=== PATIENT | female | born 1950 | race Caucasian/White ===

== ENCOUNTER 2017-05-18 20:15 | Inpatient (IN) | payer OTHER ==
[~2017-05-18] VITALS: Ht 165.1 cm; Wt 109.5 kg
[~2017-05-18 20:15] MED LIST: ATOR40TA78 PO; FENO145T13 PO; METO-95 PO; METO-99 PO; RAMI2.5C PO; VERA80TA2 PO; WARF5TAB PO
[2017-05-18] MEDS ORDERED: ONDANSETRON 2MG/ML, 2ML IVPush ONE (20:30)
[2017-05-18] MEDS ORDERED: SODIUM CHLORIDE FLUSH 10ML SYR IVF ONE (20:30)
[2017-05-18] MEDS ORDERED: MORPHINE SULFATE 4 MG/ML, 1ML IVPush PRN (20:30)
[2017-05-18 20:43] LABS: HEMATOCRIT 45.9 % (34.6-47.8); HEMOGLOBIN 14.5 g/dL (11.7-16.4); WHITE BLOOD COUNT 11.7 x10^3/uL (3.4-10)
[2017-05-18 20:54] LABS: BLOOD UREA NITROGEN 14 mg/dL (7-18)
[2017-05-18] MEDS ORDERED: FAMOTIDINE 20 MG/2 ML IVPush ONE (21:00)
[2017-05-18] MEDS ORDERED: MAALOX/HYOSCYAMINE/LIDOCAINE 45 ML BTL PO ONE (21:00)
[2017-05-18 21:02] LABS: IS PT STATUS REG ER OR PRE ER? YES
[2017-05-18] MEDS ORDERED: ONDANSETRON 2MG/ML, 2ML ONE (21:07)
[2017-05-18] MEDS ORDERED: MAALOX/HYOSCYAMINE/LIDOCAINE 45 ML BTL ONE (21:07)
[2017-05-18] MEDS ORDERED: MORPHINE SULFATE 4 MG/ML, 1ML ONE (21:07)
[2017-05-18] MEDS ORDERED: FAMOTIDINE 20 MG/2 ML ONE (21:08)
[2017-05-18] MEDS ORDERED: SODIUM CHLORIDE 0.9% 1,000 ML IV SCH (23:04)
[2017-05-18] MEDS ORDERED: FURO20TA3 PO (23:28)
[2017-05-18] MEDS ORDERED: METF500T4 PO (23:28)
[2017-05-18] MEDS ORDERED: POTA25TA4 PO (23:29)
[2017-05-18] MEDS ORDERED: SIMV10TA3 PO (23:29)
[2017-05-18] MEDS ORDERED: ACETAMINOPHEN 325 MG TABLET PO PRN (23:30)
[2017-05-18] MEDS ORDERED: morphine SULFATE 10 MG/ML, 1ML IVPush PRN (23:30)
[2017-05-18] MEDS ORDERED: VERAPAMIL 80MG TABLET PO SCH (23:30)
[2017-05-18] MEDS ORDERED: DEXTROSE 4 GM TAB.CHEW PO PRN (23:30)
[2017-05-18] MEDS ORDERED: DEXTROSE 50%, 50ML SYRINGE IVPush PRN (23:30)
[2017-05-18] MEDS ORDERED: ONDANSETRON 2MG/ML, 2ML IVPush PRN (23:30)
[2017-05-18] MEDS ORDERED: hydrALAzine 20 MG/ML, 1ML IVPush PRN (23:30)
[2017-05-18] MEDS ORDERED: GLUCAGON 1 MG IM PRN (23:30)
[2017-05-18 23:45] LABS: IS PT STATUS REG ER OR PRE ER? YES
[2017-05-19 00:06] VITALS: BP 119/86
[2017-05-19] MEDS ORDERED: KETOROLAC 30 MG/1 ML IVPush ONE (01:00)
[2017-05-19] MEDS ORDERED: ALBUTEROL/IPRATROPIUM 2.5MG/0.5MG, 3 ML NPPB PRN (02:00)
[2017-05-19 06:06] LABS: IS PT STATUS REG ER OR PRE ER? NO
[2017-05-19 07:35] VITALS: BP 105/71
[2017-05-19] MEDS ORDERED: REGADENOSON 0.4 MG/5 ML SYRINGE ONE (08:21)
[2017-05-19] MEDS ORDERED: RAMIPRIL 2.5 MG CAPSULE PO SCH (09:00)
[2017-05-19] MEDS ORDERED: SODIUM CHLORIDE FLUSH 10ML SYR IVF SCH (09:00)
[2017-05-19] MEDS ORDERED: METOPROLOL TARTRATE 100 MG TABLET PO SCH (09:00)
[2017-05-19] MEDS ORDERED: K-LYTE 25 MEQ TABLET.EFF PO SCH (09:00)
[2017-05-19] MEDS ORDERED: FUROSEMIDE 20 MG TABLET PO SCH (09:00)
[2017-05-19] MEDS ORDERED: metFORMIN 500 MG TABLET PO SCH (09:00)
[2017-05-19] MEDS ORDERED: FENOFIBRATE 145 MG TABLET PO SCH (09:00)
[2017-05-19] MEDS ORDERED: SIMVASTATIN 10 MG TABLET PO SCH (21:00)
[2017-05-19] MEDS ORDERED: WARFARIN 5 MG TABLET PO-COUM SCH (21:00)
[2017-05-19] MEDS ORDERED: ATORVASTATIN 40 MG TABLET PO SCH (21:00)
== END 2017-05-19 15:33 | disposition home or self-care (01) | DRG 313 ==
LOC: ED 22:30 → EDIP 23:02 → SUATTDRO 23:03 → 5SO 23:57 → DCLOUNGE 05-19 15:01
PROVIDERS: ADMIT Hospitalist; ATTEND Hospitalist
DX: R07.89 Other chest pain (principal); E66.01 Morbid (severe) obesity due to excess calories; Z99.81 Dependence on supplemental oxygen; Z68.41 Body mass index [BMI] 40.0-44.9, adult; J98.11 Atelectasis; E11.9 Type 2 diabetes mellitus without complications; E78.5 Hyperlipidemia, unspecified; F17.200 Nicotine dependence, unspecified, uncomplicated; I10 Essential (primary) hypertension; I48.2 Chronic atrial fibrillation; J44.9 Chronic obstructive pulmonary disease, unspecified; Z79.01 Long term (current) use of anticoagulants; K21.9 Gastro-esophageal reflux disease without esophagitis
CPT/HCPCS: 36415; 71010; 78452; 80048; 80061; 82040; 83690; 83880; 84484; 85025; 85379; 85610; 93005; 93017; 96374; 96375; J1885; J2405; J2785; A9502; C9898; J7030; S0028